=== PATIENT | female | born 1970 | race African-American/Black ===

== ENCOUNTER 2017-11-18 08:38 | Emergency (ER) | payer OTHER ==
[2017-11-18 08:48] VITALS: BP 129/92; PULSE 89; TEMP 98.1; BMI 27.3
[2017-11-18 09:32] LABS: BASO % 0.9 % (0-2.0); HEMATOCRIT 38.9 % (32.4-45.2); HEMOGLOBIN 13.2 GM/dL (10.7-15.3); LYMPH % 39.6 % (8-40); MCH 30.8 pg (25.7-33.7); MCHC 33.9 g/dl (32.0-36.0); MEAN CELL VOLUME 90.8 fl (80-96); MONO % 5.7 % (3.8-10.2); NEUT % 51.8 % (42.8-82.8); PLATELET COUNT 352 K/MM3 (134-434); RBC 4.29 M/mm3 (3.60-5.2); RDW 13.9 % (11.6-15.6); WHITE BLOOD COUNT 4.2 K/mm3 (4.0-10.0)
[2017-11-18 09:44] LABS: HCG,QUALITATIVE URINE NEGATIVE
[2017-11-18 09:47] LABS: URINE APPEARANCE CLEAR; URINE BILIRUBIN NEGATIVE (<2.0 mg/dL); URINE BLOOD NEGATIVE (NEGATIVE); URINE COLOR YELLOW; URINE GLUCOSE (UA) NEGATIVE (NEGATIVE); URINE KETONE NEGATIVE (NEGATIVE); URINE LEUK ESTERASE NEGATIVE (NEGATIVE); URINE NITRITE NEGATIVE (NEGATIVE); URINE PROTEIN NEGATIVE (NEGATIVE); URINE UROBILINOGEN NEGATIVE mg/dL (0.2-1.0)
[2017-11-18 09:51] LABS: INR 0.99 (0.82-1.09); PROTHROMBIN TIME (PATIENT) 11.2 SEC (9.7-13.0)
--- NOTE | 2017-11-18 09:55 | PDOC ---
History of Present Illness - General Chief Complaint: Chest Pain Stated Complaint: CHEST PAIN Time Seen by Provider: 11/18/17 08:54 - History of Present Illness Initial Comments: 11/18/17 09:55 CHIEF COMPLAINT: chest pain HISTORY OF PRESENT ILLNESS: 47 yo F with hx of HTN presents to ED with chest pain since this morning. Patient reports that she felt "a little pain a few days ago, but it went away", but this morning the pain persisted. She states the pain started in her back and then went to her chest. She describes it as a sharp pain, worse with inspiration "and especially when I move my left arm." She denies any recent travel, recent surgeries, or hormone use including OCPs. No recent travel or sick contacts. PAST MEDICAL HISTORY: Denies past medical history FAMILY HISTORY: Denies SOCIAL HISTORY: Denies tobacco, alcohol, illicit drug use. SURGICAL HISTORY: Denies ALLERGIES: No known drug allergies REVIEW OF SYSTEMS General/Constitutional: Denies fever or chills. Denies weakness, weight change. HEENT: Denies change in vision. Denies ear pain or discharge. Denies sore throat. Cardiovascular: Denies chest pain or shortness of breath. Respiratory: Denies cough, wheezing, or hemoptysis. Gastrointestinal: Denies nausea, vomiting, diarrhea or constipation. Denies rectal bleeding. Genitourinary: Denies dysuria, frequency, or change in urination. Musculoskeletal: Denies joint or muscle swelling or pain. Denies neck or back pain. Skin and breasts: Denies rash or easy bruising. Neurologic: Denies headache, vertigo, loss of consciousness, or loss of sensation. PHYSICAL EXAM General Appearance: Well-appearing, appropriately dressed. No apparent distress , no intoxication. HEENT: EOMI, PERRLA, normal ENT inspection, normal voice, TMs normal, pharynx normal. No conjunctival pallor. No photophobia, scleral icterus. Neck: Supple. Trachea midline. No tenderness, rigidity, carotid bruit, stridor , lymphadenopathy, or thyromegaly. Respiratory/Chest: Lungs CTAB. No shortness of breath, chest tenderness, respiratory distress, accessory muscle use. No crackles, rales, rhonchi, stridor , wheezing, dullness Cardiovascular: RRR. S1, S2. Gastrointestinal/Abdominal: Normal bowel sounds. Abdomen soft, non-distended. No tenderness or rebound tenderness. No organomegaly, pulsatile mass, guarding , hernia, hepatomegaly, splenomegaly. Musculoskeletal/Extremities: Normal inspection. FROM of all extremities, normal capillary refill. Pelvis Stable. No CVA tenderness. No tenderness to extremities, pedal edema, swelling, erythema or deformity. Integumentary: Appropriate color, dry, warm. No cyanosis, erythema, jaundice or rash Neurologic: area field person II-XII intact. Fully oriented, alert. Appropriate mood/affect. Motor strength 5/5. No appreciable EOM palsy, facial droop or sensory deficit. Past History - Past Medical History Allergies/Adverse Reactions: Allergies Allergy/AdvReac Type Severity Reaction Status Date / Time No Known Drug Allergies Allergy Verified 11/18/17 08:42 Home Medications: Ambulatory Orders Diclofenac Sodium 50 mg PO BID #14 tablet. 11/18/17 Nifedipine [Nifedipine ER] 60 mg PO DAILY 11/18/17 Anemia: No Asthma: No Cancer: No Cardiac Disorders: No CVA: No COPD: No CHF: No Dementia: No Diabetes: No GI Disorders: No Disorders: No HTN: Yes Hypercholesterolemia: No Liver Disease: No Seizures: No Thyroid Disease: No - Immunization History Immunization Up to Date: Yes - Suicide/Smoking/Psychosocial Hx Smoking History: Never smoked Have you smoked in the past 12 months: No Information on smoking cessation initiated: No Hx Alcohol Use: No Drug/Substance Use Hx: No Substance Use Type: None Hx Substance Use Treatment: No Cardiac Specific PMH - Complaint Specific PMHX Pacemaker: No *Physical Exam - Vital Signs Last Vital Signs Temp Pulse Resp BP Pulse Ox 98.1 F 89 17 129/92 100 11/18/17 08:42 11/18/17 08:42 11/18/17 08:42 11/18/17 08:42 11/18/17 09:08 ED Treatment Course - LABORATORY CBC & Chemistry Diagram: 11/18/17 09:00 11/18/17 09:00 - ADDITIONAL ORDERS Additional order review: Laboratory Results 11/18/17 11/18/17 11/18/17 09:00 09:00 09:00 PT with INR INR D-Dimer 372 Sodium 139 Potassium 3.8 Chloride 106 Carbon Dioxide 27 Anion Gap 6 L BUN 12 Creatinine 0.7 Creat Clearance w eGFR > 60 Random Glucose 94 Calcium 8.7 Magnesium 2.1 Total Bilirubin 0.2 D AST 18 ALT 29 Alkaline Phosphatase 49 Creatine Kinase 98 Troponin I < 0.02 Total Protein 7.6 Albumin 3.8 Urine Color Yellow Urine Appearance Clear Urine pH 5.0 Ur Specific [place] 1.023 Urine Protein Negative Urine Glucose (UA) Negative Urine Ketones Negative Urine Blood Negative Urine Nitrite Negative Urine Bilirubin Negative Urine Urobilinogen Negative Ur Leukocyte Esterase Negative Urine HCG, Qual Negative 11/18/17 09:00 PT with INR 11.20 INR 0.99 D-Dimer Sodium Potassium Chloride Carbon Dioxide Anion Gap BUN Creatinine Creat Clearance w eGFR Random Glucose Calcium Magnesium Total Bilirubin AST ALT Alkaline Phosphatase Creatine Kinase Troponin I Total Protein Albumin Urine Color Urine Appearance Urine pH Ur Specific [place] Urine Protein Urine Glucose (UA) Urine Ketones Urine Blood Urine Nitrite Urine Bilirubin Urine Urobilinogen Ur Leukocyte Esterase Urine HCG, Qual 11/18/17 09:00 RBC 4.29 MCV 90.8 MCHC 33.9 RDW 13.9 MPV 8.0 Neutrophils % 51.8 Lymphocytes % 39.6 Monocytes % 5.7 Eosinophils % 2.0 Basophils % 0.9 - Medications Given in the ED: ED Medications Discontinued Medications Generic Name Dose Route Start Last Admin Trade Name Freq PRN Reason Stop Dose Admin Ketorolac Tromethamine 30 mg 11/18/17 10:31 11/18/17 10:46 Toradol Injection - IVPUSH 11/18/17 10:32 30 mg ONCE ONE Administration Medical Decision Making - Medical Decision Making 11/18/17 10:03 47 yo F with hx of HTN presents to ED with chest pain since this morning. -labs, ekg, CXR 11/18/17 10:32 Labs unremarkable will repeat trop after 4 hours from initial. Patient reassessed, at this time she still c/o of pain, "especially when I breathe deeply and move my arm." -Toradol -D-dimer 11/18/17 11:21 D-dimer negative. Patient reassessed, at this time she reports "I do feel better, but I think I still feel it. But I do feel better." Awaiting repeat trop. Advised patient to take medication as prescribed and follow up with PMD and substance abuse therapist within the next week. Advised patient of signs and symptoms for return to ED. Patient verbalized understanding and agrees to plan. *DC/Admit/Observation/Transfer Diagnosis at time of Disposition: Chest pain Qualifiers: Chest pain type: chest pain on breathing Qualified Code(s): R07.1 - Chest pain on breathing; R07.81 - Pleurodynia - Discharge Dispostion Disposition: HOME Condition at time of disposition: Stable Admit: No - Prescriptions Prescriptions: Diclofenac Sodium 50 mg PO BID #14 tablet.dr - Referrals Referrals: Norma Allen [Primary Care Provider] - - Patient Instructions Printed Discharge Instructions: DI for Chest Pain Additional Instructions: Please take medications as prescribed. Follow up with Dr. Allen and Dr. Barker within the next week for further evaluation and continued monitoring of your chest pain. If you develop any new chest pain, shortness of breath, palpitations, swelling of your legs, fever, vomiting, diarrhea, or any new or worsening symptoms, please return to the ER. - Post Discharge Activity
[2017-11-18 10:07] LABS: ALBUMIN 3.8 g/dl (3.4-5.0); ANION GAP 6 (8-16); BLOOD UREA NITROGEN 12 mg/dL (7-18); CALCIUM 8.7 mg/dL (8.5-10.1); CHLORIDE 106 mmol/L (98-107); CO2 27 mmol/L (21-32); GLUCOSE,RANDOM 94 mg/dL (74-106); MAGNESIUM 2.1 mg/dL (1.8-2.4); POTASSIUM 3.8 mmol/L (3.5-5.1); SODIUM 139 mmol/L (136-145)
--- NOTE | 2017-11-18 10:12 | EKG ---
Test Reason : Blood Pressure : / mmHG Vent. Rate : 088 BPM Atrial Rate : 088 BPM P-R Int : 166 ms QRS Dur : 074 ms QT Int : 344 ms P-R-T Axes : 033 036 024 degrees QTc Int : 416 ms NORMAL SINUS RHYTHM WITH SINUS ARRHYTHMIA NORMAL ECG WHEN COMPARED WITH ECG OF 15-SEP-2015 09:37, NO SIGNIFICANT CHANGE WAS FOUND Confirmed by MD JASON, SAHIL ([id number]) on 11/18/2017 10:12:13 AM Referred By: Confirmed By:SAHIL GOMEZ MD
[2017-11-18 10:13] LABS: ALK PHOS 49 U/L (45-117); BILIRUBIN,TOTAL 0.2 mg/dL (0.2-1.0); CREATININE 0.7 mg/dL (0.55-1.02); SGOT/AST 18 U/L (15-37); SGPT/ALT 29 U/L (12-78); TOT PROT 7.6 g/dl (6.4-8.2)
[2017-11-18] MEDS ORDERED: KETOROLAC TROMETHAMINE 30 MG/1 ML VIAL IVPUSH ONE (10:31)
[2017-11-18] MEDS ORDERED: KETOROLAC TROMETHAMINE 30 MG/1 ML VIAL ONE (10:42)
--- NOTE | 2017-11-18 11:47 | PDOC ---
*Physical Exam - Vital Signs Last Vital Signs Temp Pulse Resp BP Pulse Ox 98.1 F 89 17 129/92 100 11/18/17 08:42 11/18/17 08:42 11/18/17 08:42 11/18/17 08:42 11/18/17 09:08 ED Treatment Course - LABORATORY CBC & Chemistry Diagram: 11/18/17 09:00 11/18/17 09:00 - ADDITIONAL ORDERS Additional order review: Laboratory Results 11/18/17 11/18/17 11/18/17 09:00 09:00 09:00 PT with INR INR D-Dimer 372 Sodium 139 Potassium 3.8 Chloride 106 Carbon Dioxide 27 Anion Gap 6 L BUN 12 Creatinine 0.7 Creat Clearance w eGFR > 60 Random Glucose 94 Calcium 8.7 Magnesium 2.1 Total Bilirubin 0.2 D AST 18 ALT 29 Alkaline Phosphatase 49 Creatine Kinase 98 Troponin I < 0.02 Total Protein 7.6 Albumin 3.8 Urine Color Yellow Urine Appearance Clear Urine pH 5.0 Ur Specific [place] 1.023 Urine Protein Negative Urine Glucose (UA) Negative Urine Ketones Negative Urine Blood Negative Urine Nitrite Negative Urine Bilirubin Negative Urine Urobilinogen Negative Ur Leukocyte Esterase Negative Urine HCG, Qual Negative 11/18/17 09:00 PT with INR 11.20 INR 0.99 D-Dimer Sodium Potassium Chloride Carbon Dioxide Anion Gap BUN Creatinine Creat Clearance w eGFR Random Glucose Calcium Magnesium Total Bilirubin AST ALT Alkaline Phosphatase Creatine Kinase Troponin I Total Protein Albumin Urine Color Urine Appearance Urine pH Ur Specific [place] Urine Protein Urine Glucose (UA) Urine Ketones Urine Blood Urine Nitrite Urine Bilirubin Urine Urobilinogen Ur Leukocyte Esterase Urine HCG, Qual 11/18/17 09:00 RBC 4.29 MCV 90.8 MCHC 33.9 RDW 13.9 MPV 8.0 Neutrophils % 51.8 Lymphocytes % 39.6 Monocytes % 5.7 Eosinophils % 2.0 Basophils % 0.9 - Medications Given in the ED: ED Medications Discontinued Medications Generic Name Dose Route Start Last Admin Trade Name Freq PRN Reason Stop Dose Admin Ketorolac Tromethamine 30 mg 11/18/17 10:31 11/18/17 10:46 Toradol Injection - IVPUSH 11/18/17 10:32 30 mg ONCE ONE Administration Medical Decision Making - Medical Decision Making 11/18/17 11:46 Patient seen and evaluated with the nurse practitioner. I agree with the overall evaluation, assessment, and management with the following summary of visit: 47-year-old female with history of hypertension presents with atypical chest discomfort this morning, nonexertional. Exam as noted EKG nonischemic, we'll check troponin 2 given low heart score and risk for adverse events, PCP follow-up. D-dimer negative *DC/Admit/Observation/Transfer Diagnosis at time of Disposition: Chest pain Qualifiers: Chest pain type: chest pain on breathing Qualified Code(s): R07.1 - Chest pain on breathing - Discharge Dispostion Disposition: HOME Condition at time of disposition: Stable - Prescriptions Prescriptions: Diclofenac Sodium 50 mg PO BID #14 tablet.dr - Referrals Referrals: Norma Allen [Primary Care Provider] - - Patient Instructions Printed Discharge Instructions: DI for Chest Pain Additional Instructions: Please take medications as prescribed. Follow up with Dr. Allen and Dr. Barker within the next week for further evaluation and continued monitoring of your chest pain. If you develop any new chest pain, shortness of breath, palpitations, swelling of your legs, fever, vomiting, diarrhea, or any new or worsening symptoms, please return to the ER. - Post Discharge Activity
== END 2017-11-18 13:19 | disposition home or self-care (01) ==
LOC: JER 08:38
PROC: 3E0333Z Introduction of Anti-inflammatory into Peripheral Vein, Percutaneous Approach (ICD-10-PCS; principal; 2017-11-18)
DX: R07.89 Other chest pain (principal)
CPT/HCPCS: 36415; 80053; 81003; 82550; 83735; 84484; 84703; 85025; 85379; 85610; 93005; 93010; 99284-25

== ENCOUNTER → 2019-05-21 | Day surgery (SDC) | payer OTHER ==
--- NOTE | 2019-05-24 10:56 | OP ---
DATE OF OPERATION: 05/21/2019 PREOPERATIVE DIAGNOSIS: Right breast mass 7 o'clock, 4 cm from the nipple. POSTOPERATIVE DIAGNOSIS: Right breast mass 7 o'clock, 4 cm from the nipple. PROCEDURE: Right breast ultrasound-guided core biopsy with clip placement. ANESTHESIA: Local. ATTENDING SURGEON: Chris Escoto MD ESTIMATED BLOOD LOSS: Minimal. COMPLICATIONS: None. DESCRIPTION OF PROCEDURE: Patient was made aware of the risks and benefits of the procedure and consented. She was placed in a supine position. Under sterile conditions with 1% lidocaine for local anesthesia, a small shanti was made in the skin. Using a 13-gauge suction biopsy device via lateral approach under ultrasound guidance, multiple cores were obtained and submitted to Pathology. Likewise, under ultrasound guidance, a U-shaped clip was placed into the biopsy region. Well tolerated by patient. Steri-Strips and a sterile bandage were applied. We will contact her with results. CHRIS ESCOTO M.D. [id number]
--- NOTE | 2019-05-25 18:12 | PATH ---
Surgical Pathology Report Patient Name: MIRIAN BARRIOS [facility]. Rec. #: [id number] /Age/Gender: 1970 (Age: 48) / F Account: [id number] Location: [facility] RADIOLOGY U Taken: 05/21/2019 Received: 05/21/2019 Reported: 05/25/2019 Physicians: Stefania Porras M.D. Specimen(s) Received RIGHT BREAST CORE BIOPSY 7:00 4cm FN Clinical History Nonpalpable lesion Ultrasound findings: Suspicious Final Diagnosis RIGHT BREAST 7:00, 4CM FN, CORE BIOPSY: BREAST TISSUE WITH FIBROADENOMA. Electronically Signed Haritha Gonzalez M.D. Gross Description Received in formalin labeled "right breast 7:00, 4cmfn," is a 2.0 x 1.3 x 0.2 cm aggregate of multiple abrams-yellow, irregular to cylindrical portions of fibroadipose tissue. The formalin is filtered and the specimen is entirely submitted in one cassette. Time to formalin fixation: Less than one minute Total formalin fixation time: Approximately 6 hours. /05/21/2019 saudi/05/21/2019
== END | disposition home or self-care (01) ==
LOC: FRADUS 13:48 → FRADUS-SUR 13:48
PROVIDERS: ATTEND Internal Medicine
PROC: 0HBT3ZX Excision of Right Breast, Percutaneous Approach, Diagnostic (ICD-10-PCS; principal; 2019-05-21)
DX: D24.1 Benign neoplasm of right breast (principal); N63.13 Unspecified lump in the right breast, lower outer quadrant
CPT/HCPCS: 19083; 87899; 88305-TC; A4648

== ENCOUNTER 2019-06-11 10:52 | Emergency (ER) | payer OTHER ==
[2019-06-11 11:01] VITALS: BP 139/83; PULSE 99; TEMP 98.2; BMI 29.2
[2019-06-11] MEDS ORDERED: KETOROLAC TROMETHAMINE 60 MG/2 ML VIAL IM ONE (11:23)
[2019-06-11] MEDS ORDERED: KETOROLAC TROMETHAMINE 60 MG/2 ML VIAL ONE (11:29)
--- NOTE | 2019-06-11 11:41 | PDOC ---
History of Present Illness - General Chief Complaint: Back Pain Stated Complaint: LWR BACK PAIN Time Seen by Provider: 06/11/19 11:19 History Source: Patient Exam Limitations: No Limitations - History of Present Illness Initial Comments: 06/11/19 11:36 CHIEF COMPLAINT: Lower back pain HISTORY OF PRESENT ILLNESS: This is a 48-year-old woman with past medical history of hypertension and lower back pain who presents emergency department with lower back pain which started 3 days ago while sitting down. Patient reports the pain starts in her lower back and radiates to the front of her abdomen. She denies any neurosensory deficits, incontinence of bladder or bowel , urinary retention, saddle anesthesia, foot drop, history of IV drug use or history of cancer. Patient denies any dysuria, hematuria, urinary frequency. Patient denies any vaginal bleeding reports her last period was 10 days ago ending 4 days ago. REVIEW OF SYSTEMS: GENERAL: Afebrile, denies any weakness RESPIRATORY: No cough, wheezing, or hemoptysis. CARDIAC: No chest pain or shortness of breath MUSCULOSKELETAL: Pain to generalized lower back. No point tenderness. SKIN : No erythema, no bruising, no deformity. GI/: Denies any abdominal pain, no urinary difficulty, incontinence or urinary retention. RECTAL: Denies any difficulty this A.m. NEUROLOGICAL: Denies any numbness or tingling. No neurosensory deficits. PHYSICAL EXAM: GENERAL: The patient is awake, alert, and fully oriented, in no acute distress. RESPIRATORY: Lungs clear bilaterally, no rhonchi wheezes or crackles CARDIAC: S1-S2 audible, no murmur rub or gallop MUSCULOSKELETAL: Pain to generalized lower back, nonradiating, no tingling or sensory deficit. Less than 2 second cap refill, +2 pedal pulses. No spinal point tenderness. Normal reflexive and no deficits to sensation or strength. GI/: Abdomen soft, nontender, nondistended. No rebound tenderness. No masses palpable. RECTAL: Deferred patient with no neurological findings SKIN: Warm, Dry, normal turgor, no erythema, no edema no bruising. Past History - Past Medical History Allergies/Adverse Reactions: Allergies Allergy/AdvReac Type Severity Reaction Status Date / Time No Known Drug Allergies Allergy Verified 06/11/19 10:58 Home Medications: Ambulatory Orders Nifedipine [Nifedipine ER] 90 mg PO DAILY 11/18/17 Anemia: No Asthma: No Cancer: No Cardiac Disorders: No CVA: No COPD: No CHF: No Dementia: No Diabetes: No GI Disorders: No Disorders: No HTN: Yes Hypercholesterolemia: No Liver Disease: No Seizures: No Thyroid Disease: No Other medical history: CERVICAL POLYPS/ ENDOMETRIOSIS - Immunization History Immunization Up to Date: Yes - Psycho Social/Smoking Cessation Hx Smoking History: Never smoked Have you smoked in the past 12 months: No Information on smoking cessation initiated: No Hx Alcohol Use: No Drug/Substance Use Hx: No Substance Use Type: None Hx Substance Use Treatment: No *Physical Exam - Vital Signs Last Vital Signs Temp Pulse Resp BP Pulse Ox 98.2 F 99 H 16 139/83 99 06/11/19 10:58 06/11/19 10:58 06/11/19 10:58 06/11/19 10:58 06/11/19 10:58 Medical Decision Making - Medical Decision Making 06/11/19 11:41 A/P: 48-year-old woman with lower back pain radiating to lower abdomen. Urinalysis, urine , urine culture Toradol 60 mg IM now Reassess 06/11/19 12:26 UA with trace blood noted. Negative urine testing. Discharge patient home to follow-up with Dr. Delgadillo as previously scheduled today. Discharge - Discharge Information Problems reviewed: Yes Clinical Impression/Diagnosis: Lower back pain Qualifiers: Chronicity: acute Back pain laterality: midline Sciatica presence: without sciatica Qualified Code(s): M54.5 - Low back pain Condition: Fair Disposition: HOME - Admission No - Follow up/Referral Referrals: Norma Allen [Primary Care Provider] - - Patient Discharge Instructions Additional Instructions: Take Tylenol as needed for pain. Follow manufacturers instructions for appropriate dosage. Warm moist heat applied to your back may help alleviate pain. Return to emergency department for discoloration of the foot, numbness or tingling to the foot, worsening pain, or any other concerns. Thank you very much for choosing us to provide your emergent healthcare needs. - Post Discharge Activity Work/Back to School Note: Back to Work
[2019-06-11 12:21] LABS: EPI CELLS 6.4 /HPF (0-5/HPF); HYALINE CASTS 3 /lpf (0-8); URINE APPEARANCE CLEAR; URINE BACTERIA 78.6 /hpf (NEGATIVE); URINE BILIRUBIN NEGATIVE (NEGATIVE); URINE COLOR YELLOW; URINE GLUCOSE (UA) NEGATIVE (NEGATIVE); URINE KETONE TRACE (NEGATIVE); URINE LEUK ESTERASE NEGATIVE (NEGATIVE); URINE NITRITE NEGATIVE (NEGATIVE); URINE PROTEIN NEGATIVE (NEGATIVE); URINE RBC 10 /hpf (0-4); URINE WBC 1 /hpf (0-5)
== END 2019-06-11 12:31 | disposition home or self-care (01) ==
LOC: JERFT 10:52
PROC: 3E0233Z Introduction of Anti-inflammatory into Muscle, Percutaneous Approach (ICD-10-PCS; principal; 2019-06-11)
DX: M54.5 Low back pain (principal); I10 Essential (primary) hypertension; N80.9 Endometriosis, unspecified
CPT/HCPCS: 81003; 84703; 87086; 87186; 99282-25

== ENCOUNTER 2021-10-30 11:51 | Emergency (ER) | payer OTHER ==
[2021-10-30 12:14] VITALS: TEMP 98.2; BMI 29.2
[2021-10-30] MEDS ORDERED: METOCLOPRAMIDE HCL INJECTION 10 MG/2 ML VIAL IVPB ONE (13:22)
[2021-10-30] MEDS ORDERED: SODIUM CHLORIDE 0.9% 1000 ML INFUS.BAG IV ONE (13:22)
[2021-10-30] MEDS ORDERED: ACETAMINOPHEN 1000 MG/100 ML BAG IVPB ONE (13:22)
[2021-10-30] MEDS ORDERED: METOCLOPRAMIDE HCL INJECTION 10 MG/2 ML VIAL ONE (13:35)
[2021-10-30] MEDS ORDERED: ACETAMINOPHEN INJECTION 100 ML IVPB ONE (13:36)
[2021-10-30 14:41] LABS: BASO % 0.5 % (0-2.0); EOS % 0.6 % (0-4.5); HEMATOCRIT 36.3 % (32.4-45.2); HEMOGLOBIN 11.7 GM/dL (10.7-15.3); LYMPH % 38.6 % (8-40); MCH 26.8 pg (25.7-33.7); MCHC 32.3 g/dl (32.0-36.0); MEAN CELL VOLUME 82.9 fl (80-96); MEAN PLT VOLUME 8.9 fl (7.5-11.1); MONO % 9.6 % (3.8-10.2); NEUT % 50.7 % (42.8-82.8); PLATELET COUNT 315 10^3/uL (134-434); RBC 4.38 M/mm3 (3.60-5.2); RDW 15.2 % (11.6-15.6); WHITE BLOOD COUNT 5.4 K/mm3 (4.0-10.0)
[2021-10-30 14:46] LABS: PH,URINE 5.5 (5.0-8.0); URINE APPEARANCE CLEAR; URINE BILIRUBIN NEGATIVE (NEGATIVE); URINE COLOR YELLOW; URINE GLUCOSE (UA) NEGATIVE (NEGATIVE); URINE KETONE NEGATIVE (NEGATIVE); URINE LEUK ESTERASE NEGATIVE (NEGATIVE); URINE NITRITE NEGATIVE (NEGATIVE); URINE PROTEIN NEGATIVE (NEGATIVE); URINE UROBILINOGEN 0.2 mg/dL (0.2-1.0)
[2021-10-30 14:55] LABS: ALBUMIN 3.5 g/dl (3.4-5.0); CALCIUM 8.8 mg/dL (8.5-10.1); MAGNESIUM 2.3 mg/dL (1.8-2.4)
[2021-10-30 14:58] LABS: CREATININE 0.8 mg/dL (0.55-1.3)
[2021-10-30 15:00] LABS: BILIRUBIN,TOTAL 0.3 mg/dL (0.2-1); TOT PROT 7.2 g/dl (6.4-8.2)
[2021-10-30 16:18] VITALS: BP 141/74; PULSE 70
== END 2021-10-30 16:18 | disposition home or self-care (01) ==
LOC: JER 11:51
PROC: 3E0333Z Introduction of Anti-inflammatory into Peripheral Vein, Percutaneous Approach (ICD-10-PCS; principal; 2021-10-30)
PROC: 3E033GC Introduction of Other Therapeutic Substance into Peripheral Vein, Percutaneous Approach (ICD-10-PCS; 2021-10-30)
PROC: 3E033GC Introduction of Other Therapeutic Substance into Peripheral Vein, Percutaneous Approach (ICD-10-PCS; 2021-10-30)
DX: R51.9 Headache, unspecified (principal)
CPT/HCPCS: 36415; 70450-TC; 80053; 81003; 83735; 84703; 85025; 87086; 99284-25